=== PATIENT | female | born 2000 | race Caucasian/White ===

== ENCOUNTER 2022-07-01 16:30 | Inpatient (IN) | payer MEDICAID, OTHER ==
[2022-07-01] VITALS (8 sets, daily range): BP systolic 114–130; BP diastolic 63–98
[~2022-07-01] VITALS: Ht 180 cm; Wt 88.7 kg
[2022-07-01] MEDS: LACTATED RINGERS 1,000 ML IV PRN ×2 (16:58→17:42)
[2022-07-01] MEDS ORDERED: FAMOTIDINE 20MG/2ML IV (PEPCID) IV ONE (17:00)
[2022-07-01] MEDS ORDERED: D5 LR IV SOLUTION 1,000 ML IV SCH ×2 (17:00)
[2022-07-01] MEDS ORDERED: TETANUS,DIPTH,PERTUSS P/F (BOOSTRIX) 0.5 ML VIAL IM ONE (17:00)
[2022-07-01] MEDS ORDERED: metroNIDAZOLE 500MG/100ML IVPB 100 ML IV NR (17:00)
[2022-07-01] MEDS ORDERED: CITRIC ACID/SOB CIT (BICITRA) 30 ML UDC PO ONE (17:00)
[2022-07-01] MEDS ORDERED: METOCLOPRAMIDE INJ 10 MG/2 ML (REGLAN) IV ONE (17:00)
[2022-07-01] MEDS ORDERED: MEPERIDINE (DEMEROL) INJ 50 MG/ML IVP PRN (17:00)
[2022-07-01] MEDS ORDERED: PROMETHAZINE INJ 25 MG/ML (PHENERGAN) AMP IM PRN (17:00)
[2022-07-01] MEDS ORDERED: ceFAZolin INJECTION 2,000 MG in NS (IVPB) 50 ML IV NR (17:00)
[2022-07-01] MEDS ORDERED: IBUP-1780 PO (17:04)
[2022-07-01] MEDS ORDERED: DOCU100C37 PO (17:04)
[2022-07-01] MEDS ORDERED: OXYC1TAB12 PO (17:04)
[2022-07-01] MEDS ORDERED: fentaNYL INJ 100 MCG/2 ML AMP ONE (17:05)
--- NOTE | 2022-07-01 17:05 | Discharge Inst-Surgical ---
Discharge Inst-Surgical Depart Medication/Instructions New, Converted or Re-Newed RX: Other Consults/Follow Up Patient Instructions: As directed Orders & Referrals Follow Up Appt: RTC 1 week for incision check. Call to make follow up appt. for patient in 4 weeks. Wound Care: Remove leticia, apply benzoin and steri strips. Activity Per routine post instructions. Please call in RX to patient pharmacy. Diet as tolerated Patient may shower or tub bathe as desired. Continue home meds Activity Activity as Tolerated: No Diet Discharge Diet: No Restrictions EBONI WYLIE MD Jul 01, 2022 17:05
[2022-07-01] MEDS ORDERED: KETAMINE 50 MG/5 ML SYRINGE ONE (17:07)
--- NOTE | 2022-07-01 17:08 | History & Physical ---
History and Physical Date Seen by Provider: Jul 01, 2022 Time Seen by Provider: 17:05 This patient is a 22-year-old female that presents in spontaneous labor with advanced dilation to 8 or 9 cm with a bulging bag well down in the vagina and the presenting part to high to palpate.Vacation she started blanche about 3 hours ago and then decided to come to the hospital. Patient had care with 1 visit in my clinic I am not aware of any other care for this patient Patient is overtly in pain. She denies rupture membranes. Has had some spotting or bleeding Allergies are none Medications are none Medical social and surgical histories are per her antepartum record HEENT exam is normal Neck is supple no lymphadenopathy no thyromegaly Abdomen is gravid soft nontender nondistended Extremities show no clubbing or cyanosis. There is no Homans' sign. Pelvic exam is deferred however nurse exam on presentation showed a cervix 8 to 9 cm dilated 90% effaced bulging well down into the vagina with a presenting part not palpable Assessment and plan Term at 37+ weeks gestation in a patient with poor and late care - To my knowledge she is only had 1 visit and that was in my clinic at around 31 weeks gestation This patient has had a previous she apparently has had a previous vaginal delivery as well. She was planning for repeat delivery. She is now admitted emergently and we are planning to go to the operating room fairly urgently for repeat delivery Allergies and Home Medications Allergies Coded Allergies: No Known Drug Allergies (Unverified , 07/01/22) Patient Home Medication List Home Medication List Reviewed: Yes Docusate Sodium (Docusate Sodium) 100 Mg Capsule, 100 MG PO BID Prescribed by: EBONI ELIZONDO on 07/01/221703 Ibuprofen (Ibuprofen) 800 Mg Tablet, 800 MG PO Q6H Prescribed by: EBONI ELIZONDO on 07/01/221703 Oxycodone HCl/Acetaminophen (Percocet 10-325 mg Tablet) 1 Each Tablet, 1 TAB PO Q4H PRN for PAIN-MODERATE (5-7) Prescribed by: EBONI ELIZONDO on 07/01/221703 EBONI WYLIE MD Jul 01, 2022 17:08
[2022-07-01 17:10] LABS: BASOPHILS % (AUTO) 0 % (0-10); EOSINOPHILS % (AUTO) 0 % (0-10); HEMATOCRIT 38 % (35-52); HEMOGLOBIN 12.9 g/dL (11.5-16.0); LYMPHOCYTES # (AUTO) 2.7 10^3/uL (1.0-4.0); LYMPHOCYTES % (AUTO) 15 % (12-44); MEAN CORPUSCULAR HEMOGLOBIN 28 pg (25-34); MEAN CORPUSCULAR HGB CONC 34 g/dL (32-36); MEAN CORPUSCULAR VOLUME 82 fL (80-99); MONOCYTES # (AUTO) 1.1 10^3/uL (0.0-1.0); MONOCYTES % (AUTO) 6 % (0-12); NEUTROPHILS # (AUTO) 14.5 10^3/uL (1.8-7.8); NEUTROPHILS % (AUTO) 79 % (42-75); PLATELET COUNT 366 10^3/uL (130-400); WHITE BLOOD COUNT 18.4 10^3/uL (4.3-11.0)
[2022-07-01 17:12] LABS: BILIRUBIN,URINE NEGATIVE (NEGATIVE); CLARITY,URINE CLEAR; COLOR,URINE YELLOW; GLUCOSE, URINE (UA) NEGATIVE (NEGATIVE); KETONES,URINE NEGATIVE (NEGATIVE); LEUKOCYTE ESTERASE ,URINE 3+ (NEGATIVE); NITRITE,URINE NEGATIVE (NEGATIVE); PH,URINE 7.5 (5-9); PROTEIN,URINE NEGATIVE (NEGATIVE)
[2022-07-01] MEDS ORDERED: TERBUTALINE INJ 1 MG/ML (BRETHINE) AMP SC ONE (17:15)
[2022-07-01] MEDS ORDERED: OXYTOCIN PRE-MIX DRIP 500 ML IV ONE ×2 (17:37→17:57)
[2022-07-01 17:39] LABS: BACTERIA,URINE FEW /HPF; RBC,URINE 0-2 /HPF; WBC,URINE 25-50 /HPF
[2022-07-01] MEDS: KETOROLAC 30 MG/ML VIAL IV SCH (17:45)
[2022-07-01] MEDS ORDERED: ONDANSETRON 4 MG/2 ML (SDV) Z0FRAN ONE (17:49)
[2022-07-01] MEDS ORDERED: KETOROLAC 30 MG/ML VIAL ONE (17:49)
[2022-07-01 18:18] LABS: AMPHETAMINE SCREEN, URINE POSITIVE (NEGATIVE); BARBITURATE SCREEN URINE NEGATIVE (NEGATIVE); BENZODIAZEPINES SCREEN URINE NEGATIVE (NEGATIVE); CANNABINOID SCREEN, URINE NEGATIVE (NEGATIVE); COCAINE SCREEN URINE NEGATIVE (NEGATIVE); METHADONE STAT NEGATIVE (NEGATIVE); OPIATE SCREEN URINE NEGATIVE (NEGATIVE); OXYCODONE STAT NEGATIVE (NEGATIVE); PROPOXYPHENE STAT NEGATIVE (NEGATIVE); TRICYCLIC ANTIDEPRESSANTS SCRE NEGATIVE (NEGATIVE)
[2022-07-01] MEDS: OXYTOCIN PRE-MIX DRIP 500 ML IV SCH ×2 (20:03→20:16)
[2022-07-01] MEDS: DOCUSATE SODIUM 100 MG (COLACE) CAP PO SCH (20:16)
[2022-07-01] MEDS: oxyCODONE/APAP 10/325MG (PERCOCET 10) TABLET PO PRN (20:48)
--- NOTE | 2022-07-01 22:33 | OPERATIVE REPORT ---
DATE OF SERVICE: 07/01/2022 PREOPERATIVE DIAGNOSES: Term at 37+ weeks' gestation in advanced labor with previous . POSTOPERATIVE DIAGNOSES: Term at 37+ weeks' gestation in advanced labor with previous . OPERATIVE PROCEDURE: Repeat low transverse delivery of a viable female infant with Apgars of 1 and 6 at 1 and 5 minutes respectively, weight of 5 pounds 7 ounces, time of 1737 and a cord blood pH 7.31. OPERATIVE DESCRIPTION: With the patient in the supine position under satisfactory spinal anesthesia, she was prepped and draped in the usual fashion for abdominal and vaginal surgery. Urinary bladder was drained with a Barry catheter. A Pfannenstiel incision was made through skin with scalpel, the patient's abdomen was entered in the usual manner. Bladder retractor placed in position, clean scalpel used to make a 4 cm hysterotomy incision transversely across the lower uterine segment. Copious dark green amniotic fluid was released on hysterotomy. The incision was extended bluntly. The presentation was back down transverse lie with head right. Internal podalic version was accomplished and breech extraction was performed with the delivery of the female . The had Apgars and stats as noted above. On delivery of the infant, it was bulb suctioned promptly. The umbilical cord was already pulseless, it was doubly clamped and cut and the passed to the pediatric nurse in attendance for delivery. Cord bloods were obtained. The placenta delivered spontaneously Padilla. It was normal with a 3-vessel cord. It was heavily meconium stained as was the fetus. The uterus was now exteriorized, interior wiped clean with a wet laparotomy sponge. Uterine incision closed with running locked suture of 2-0 Vicryl. Hemostasis was complete. The uterus was returned to abdominal cavity. All blood clot and debris removed from the abdominal cavity. With sponge and needle counts correct and the hemostasis assured. The anterior parietal peritoneum was closed with running suture of 2-0 Vicryl. Rectus muscles were closed with that suture as well. The rectus fascia was closed with 2-0 Vicryl, subcutaneous tissue was closed with 2-0 Vicryl and the skin was stapled. Sponge and needle counts were correct on completion of the procedure. Blood loss was around 500 mL. The patient was transferred to the recovery room. The infant had been taken stable to the full-term nursery for resuscitation and evaluation. Job ID: [id number] DocumentID: [id number] Dictated Date: 07/01/2022 19:38:12 [employer] Supervisor Date: 07/01/2022 22:32:34 Dictated By: EBONI WYLIE MD
[2022-07-02 00:22] VITALS: BP 119/70
[2022-07-02] MEDS: KETOROLAC 30 MG/ML VIAL IV SCH ×2 (00:22→06:34)
[2022-07-02] MEDS: oxyCODONE/APAP 10/325MG (PERCOCET 10) TABLET PO PRN ×4 (00:22→22:52)
[2022-07-02 04:36] VITALS: BP 109/58
--- NOTE | 2022-07-02 07:30 | Progress Note ---
Standard Progress Note Progress Notes/Assess & Plan Date Seen by a Provider: Jul 02, 2022 Time Seen by a Provider: 07:30 Progress/Assessment & Plan This patient is without complaint. She is ambulating, voiding, tolerating oral intake well and has good pain control. Vital Signs Date Time Temp Pulse Resp B/P (MAP) Pulse Ox O2 Delivery O2 Flow Rate FiO2 07/02/22 04:36 36.3 96 18 109/58 (75) 97 Room Air 07/02/22 00:22 37.4 95 18 119/70 (86) 97 Room Air 07/01/22 21:14 Room Air 07/01/22 20:00 36.8 91 18 114/65 (81) 100 Room Air 07/01/22 18:50 Room Air 07/01/22 18:50 36.5 18 126/78 (94) 97 Room Air 07/01/22 18:41 Room Air 07/01/22 18:40 18 123/75 (91) 98 Room Air 07/01/22 18:37 Room Air 07/01/22 18:30 18 114/98 (103) 98 Room Air 07/01/22 18:29 Room Air 07/01/22 18:20 18 129/71 (90) 97 Room Air 07/01/22 18:15 Room Air 07/01/22 18:10 18 121/69 (86) 97 Room Air 07/01/22 18:00 36.4 14 117/63 (81) 98 Room Air 07/01/22 18:00 Room Air 07/01/22 16:30 36.5 117 22 99 Room Air I & O 07/02/22 07:00 Intake Total 2710 ml Output Total 330 ml Balance 2380 ml Vital signs are stable. Patient is afebrile. Abdomen is benign Extremities show no clubbing or cyanosis. There is no Homans' sign. Assessment and plan Postoperative day #1 status post repeat delivery at 37+ weeks ges tation. Plan is for routine convalescent care EBONI WYLIE MD Jul 02, 2022 07:30
[2022-07-02 08:00] VITALS: BP 103/57
--- NOTE | 2022-07-02 08:25 | Anesthesia-Regional Post-Op ---
Regional Patient Condition Mental Status: Alert, Oriented x3 Circulation: Same as Pre-Op Headache: Absent Sensation: Full Recovery Motor Block: Absent Post Op Complications Complications None Follow Up Care/Instructions Patient Instructions None needed. Anesthesia/Patient Condition Patient is doing well, no complaints, stable vital signs, no apparent adverse anesthesia problems. No complications reported per nursing. D/C home per [facility] Criteria: Yes TALAT FOSTER CRNA Jul 02, 2022 08:25
[2022-07-02] MEDS: DOCUSATE SODIUM 100 MG (COLACE) CAP PO SCH ×2 (09:08→22:14)
[2022-07-02 12:25] VITALS: BP 109/60
[2022-07-02] MEDS: IBUPROFEN 800 MG (MOTRIN) TAB PO SCH ×2 (13:01→18:33)
[2022-07-02] MEDS ORDERED: TETANUS,DIPTH,PERTUSS P/F (BOOSTRIX) 0.5 ML VIAL IM ONE (15:45)
[2022-07-02 16:29] VITALS: BP 110/57
[2022-07-02] MEDS ORDERED: IBUPROFEN 800 MG (MOTRIN) TAB PO SCH (17:00)
[2022-07-02 22:11] VITALS: BP 105/64
[2022-07-03 00:33] VITALS: BP 104/54
[2022-07-03] MEDS: IBUPROFEN 800 MG (MOTRIN) TAB PO SCH ×3 (00:35→11:51)
[2022-07-03 06:25] VITALS: BP 109/65
--- NOTE | 2022-07-03 07:59 | Progress Note ---
Standard Progress Note Progress Notes/Assess & Plan Date Seen by a Provider: Jul 03, 2022 Time Seen by a Provider: 07:57 Progress/Assessment & Plan This patient is without complaint. She is ambulating, voiding, tolerating oral intake well and has good pain control. Vital Signs Date Time Temp Pulse Resp B/P (MAP) Pulse Ox O2 Delivery O2 Flow Rate FiO2 07/02/22 04:36 36.3 96 18 109/58 (75) 97 Room Air 07/02/22 00:22 37.4 95 18 119/70 (86) 97 Room Air 07/01/22 21:14 Room Air 07/01/22 20:00 36.8 91 18 114/65 (81) 100 Room Air 07/01/22 18:50 Room Air 07/01/22 18:50 36.5 18 126/78 (94) 97 Room Air 07/01/22 18:41 Room Air 07/01/22 18:40 18 123/75 (91) 98 Room Air 07/01/22 18:37 Room Air 07/01/22 18:30 18 114/98 (103) 98 Room Air 07/01/22 18:29 Room Air 07/01/22 18:20 18 129/71 (90) 97 Room Air 07/01/22 18:15 Room Air 07/01/22 18:10 18 121/69 (86) 97 Room Air 07/01/22 18:00 36.4 14 117/63 (81) 98 Room Air 07/01/22 18:00 Room Air 07/01/22 16:30 36.5 117 22 99 Room Air I & O 07/02/22 07:00 Intake Total 2710 ml Output Total 330 ml Balance 2380 ml Vital signs are stable. Patient is afebrile. Abdomen is benign Extremities show no clubbing or cyanosis. There is no Homans' sign. Assessment and plan Postoperative day #1 status post repeat delivery at 37+ weeks ges tation. Plan is for routine convalescent care July 03, 2022 Patient is without complaint. She is ambulating, voiding, tolerating oral intake well and has good pain control. Note is made of positive urine drug screen. Patient indicates that she plans to follow-up with rehabilitation services. Patient is considering discharge home today. Vital Signs Date Time Temp Pulse Resp B/P (MAP) Pulse Ox O2 Delivery O2 Flow Rate FiO2 07/03/22 06:25 36.8 80 18 109/65 (80) 96 Room Air 07/03/22 00:33 36.1 84 18 104/54 (71) 96 Room Air 07/02/22 22:11 36.6 88 18 105/64 (78) 96 Room Air 07/02/22 16:29 36.4 88 18 110/57 (74) 96 Room Air 07/02/22 12:25 37.1 98 18 109/60 (76) 100 Room Air 07/02/22 08:00 36.7 82 18 103/57 (72) 96 Room Air I & O 07/03/22 06:59 Intake Total 1200 ml Output Total 1000 ml Balance 200 ml Vital signs are stable. Patient is afebrile. The abdomen is benign. The surgical incision is clean dry and intact. Extremities show no clubbing or cyanosis. There is no Homans' sign. Assessment and plan Postoperative day #2 status post repeat delivery at 37 weeks gestation. Patient does have a history of drug abuse and is considering treatment programs. Plan is for discharge home with follow-up in clinic Final Diagnosis 37-week repeat delivery EBONI WYLIE MD Jul 03, 2022 07:59
[2022-07-03 08:00] VITALS: BP 118/67
[2022-07-03] MEDS: DOCUSATE SODIUM 100 MG (COLACE) CAP PO SCH (09:09)
[2022-07-03 15:00] VITALS: BP 121/80
[2022-07-03] MEDS: oxyCODONE/APAP 10/325MG (PERCOCET 10) TABLET PO PRN (15:06)
[2022-07-03 15:45] VITALS: BP 121/80
== END 2022-07-03 15:45 | disposition home or self-care (01) | DRG 787 ==
LOC: LDRP 16:30
PROVIDERS: ADMIT Obstetrics & Gynecology; ATTEND Obstetrics & Gynecology
PROC: 10D00Z1 Extraction of Products of Conception, Low, Open Approach (ICD-10-PCS; principal; 2022-07-01 17:13)
DX: O34.211 Maternal care for low transverse scar from previous cesarean delivery (principal); O99.324 Drug use complicating childbirth; F19.10 Other psychoactive substance abuse, uncomplicated; Z3A.37 37 weeks gestation of pregnancy; Z37.0 Single live birth; Z23 Encounter for immunization
CPT/HCPCS: 36415; 80306; 81000; 83033; 85025; 86850; 86870; 86900; 86901; 87088; 90715; 94664; 99212